=== PATIENT | female | born 1955 | race Caucasian/White ===

== ENCOUNTER 2016-08-12 16:36 | Emergency (ER) | payer OTHER ==
[~2016-08-12] VITALS: Ht 157.5 cm; Wt 73.5 kg
[~2016-08-12 16:36] MED LIST: AMBIEN5 MG PO; APRESOLINE25 MG PO; COREG25 MG PO; FLONASE16 GM NASLF; GLUCOPHAGE500 MG PO; MELATONIN5 MG PO; MULTIVITAMINS1 EAC1 PO; NORVASC10 MG PO; PHOSLO667 MG PO; PRINIVIL20 MG PO; VITAMIN D31000 UNI1 PO; ZYLOPRIM100 MG PO
== END 2016-08-12 18:35 | disposition short-term general hospital (02) ==
LOC: ER 16:36
DX: R13.10 Dysphagia, unspecified (principal); Z88.8 Allergy status to other drugs, medicaments and biological substances; Z79.84 Long term (current) use of oral hypoglycemic drugs; Z79.899 Other long term (current) drug therapy